=== PATIENT | male | born 1980 | race Two or more races ===

== ENCOUNTER 2019-02-20 03:13 | Emergency (ER) | payer MEDICAID ==
[~2019-02-20] VITALS: Ht 172.7 cm; Wt 81.6 kg
[2019-02-20 03:30] VITALS: BP 152/101
--- NOTE | 2019-02-20 03:39 | Emergency Room Report ---
History of Present Illness General Chief Complaint: Abdominal Pain Source: Patient Present Illness HPI This is a 38-year-old male with no past medical history. He presents with complaint of right upper quadrant pain. This been an ongoing problem for 6 months. Is been intermittently. Usually lasted for less than an hour and go away. This was been more persistent. Has nausea and vomiting. Pain is to the right upper quadrant radiating to the back. Pain is 8 out of 10. Did not take anything for it. Has not seen a doctor for this. Denies any other complaint. Allergies: Coded Allergies: No Known Allergies (Unverified , 02/20/19) Patient History Past Medical History: see triage record, old chart reviewed Past Surgical History: none Pertinent Family History: none Social History: Denies: smoking Immunizations: other Reviewed Nursing Documentation: PMH: Agreed; PSxH: Agreed Nursing Documentation-PMH Hx Seizures: Yes Review of Systems Eye: Denies: eye pain, blurred vision ENT: Denies: ear pain, nose congestion, throat swelling Respiratory: Denies: cough, shortness of breath Cardiovascular: Denies: chest pain, palpitations Gastrointestinal: Reports: abdominal pain; Denies: diarrhea, nausea, vomiting Musculoskeletal: Denies: back pain, joint pain Skin: Denies: rash Neurological: Denies: headache, numbness Endocrine: Denies: increased thirst, increased urine Hematologic/Lymphatic: Denies: easy bruising All Other Systems: negative except mentioned in HPI Physical Exam Vital Signs Date Time Temp Pulse Resp B/P (MAP) Pulse Ox O2 Delivery O2 Flow Rate FiO2 02/20/19 03:22 97.2 70 16 152/101 (118) 97 Room Air Vitals with high blood pressure Sp02 EP Interpretation: reviewed, normal General Appearance: well appearing, no apparent distress, alert Head: normocephalic, atraumatic Eyes: bilateral eye PERRL, bilateral eye EOMI ENT: hearing grossly normal, normal pharynx Neck: full range of motion, supple, no meningismus Respiratory: chest non-tender, lungs clear, normal breath sounds Cardiovascular #1: regular rate, rhythm, no murmur Gastrointestinal: normal bowel sounds, no mass, no organomegaly, no bruit, non- distended, tenderness - Mild right upper quadrant Musculoskeletal: back normal, gait/station normal, normal range of motion Psychiatric: mood/affect normal Medical Decision Making Diagnostic Impression: Primary Impression: Cholelithiasis Qualified Codes: K80.20 - Calculus of gallbladder without cholecystitis without obstruction Additional Impression: Biliary colic ER Course Patient presents with right upper quadrant pain. Labs unremarkable. Bedside ultrasound showed gallstones without any evidence of cholecystitis or biliary obstruction. Pain is well controlled. Will discharge home. Last Vital Signs Date Time Temp Pulse Resp B/P (MAP) Pulse Ox O2 Delivery O2 Flow Rate FiO2 02/20/19 03:30 97.2 70 16 152/101 97 Room Air Status: improved Disposition: HOME, SELF-CARE Condition: Stable Scripts Ibuprofen* (MOTRIN*) 600 Mg Tablet 600 MG ORAL THREE TIMES A DAY, #30 TAB 0 Refills Prov: Parag Chiang MD 02/20/19 Hydrocodone/Acetaminophen 5-325* (HYDROCODONE/ACETAMINOPHEN 5-325*) 1 Each Tablet 1 TAB ORAL Q6H PRN for For Pain, #10 TAB 0 Refills Prov: Parag Chiang MD 02/20/19 Additional Instructions: Follow-up with your doctor in 7 days. You may need a referral to see a surgeon. Return if worse. Parag Chiang MD Feb 20, 2019 03:39
[2019-02-20] MEDS ORDERED: IBUPROFEN600 MG ORAL (03:40)
[2019-02-20] MEDS ORDERED: HYDROCODON-ACE1 EA15 ORAL (03:40)
[2019-02-20] MEDS ORDERED: Morphine Sulfate 4mg/ml Inj (IV USE ONLY) IVP ONE (03:45)
[2019-02-20] MEDS ORDERED: Ketorolac 30mg Inj IV ONE (03:45)
[2019-02-20 03:52] LABS: BASOPHILS % (AUTO) 0.8 % (0.0-2.0); EOSINOPHILS % (AUTO) 0.4 % (0.0-3.0); HEMATOCRIT 48.5 % (42.0-52.0); HEMOGLOBIN 17.2 G/DL (14.2-18.0); LYMPHOCYTES % (AUTO) 16.2 % (20.0-45.0); MEAN CORPUSCULAR VOLUME 86 FL (80-99); MONOCYTES % (AUTO) 5.9 % (1.0-10.0); NEUTROPHILS % (AUTO) 76.8 % (45.0-75.0); PLATELET COUNT 270 K/UL (150-450); RED BLOOD COUNT 5.61 M/UL (4.70-6.10); RED CELL DISTRIBUTION WIDTH 10.5 % (11.6-14.8); WHITE BLOOD COUNT 14.7 K/UL (4.8-10.8)
[2019-02-20 03:53] LABS: APPEARANCE,URINE CLEAR; BILIRUBIN, URINE NEGATIVE (NEGATIVE); COLOR,URINE PALE YELLOW; GLUCOSE, URINE (UA) NEGATIVE (NEGATIVE); KETONES,URINE NEGATIVE (NEGATIVE); LEUKOCYTE ESTERASE ,URINE 1+ (NEGATIVE); NITRITE,URINE NEGATIVE (NEGATIVE); PH,URINE 6.5 (4.5-8.0); PROTEIN,URINE NEGATIVE (NEGATIVE); UROBILINOGEN,URINE NORMAL MG/DL (0.0-1.0)
[2019-02-20 04:03] LABS: ANION GAP 5 mmol/L (5-15); BLOOD UREA NITROGEN 13 mg/dL (7-18); CALCIUM 8.7 MG/DL (8.5-10.1); CARBON DIOXIDE 34 MMOL/L (21-32); CHLORIDE 101 MMOL/L (98-107); SODIUM 139 MMOL/L (136-145)
[2019-02-20 04:08] LABS: ALANINE AMINOTRANSFERASE 79 U/L (12-78); ALBUMIN 4.5 G/DL (3.4-5.0); ALBUMIN/GLOBULIN RATIO 1.2 (1.0-2.7); ALKALINE PHOSPHATASE 66 U/L (46-116); ASPARTATE AMINO TRANSFERASE 31 U/L (15-37); BILIRUBIN,TOTAL 0.4 MG/DL (0.2-1.0)
[2019-02-20 04:29] VITALS: BP 135/77
[2019-02-20 04:30] VITALS: BP 135/77
== END 2019-02-20 04:30 | disposition home or self-care (01) ==
LOC: EMR 03:42
DX: K80.70 Calculus of gallbladder and bile duct without cholecystitis without obstruction (principal); G40.909 Epilepsy, unspecified, not intractable, without status epilepticus
CPT/HCPCS: 36415; 80053; 81003; 83690; 85025; 96361; 96374; 96375; J1885; J2270; J2405; Z7502; 99284

== ENCOUNTER 2019-06-20 22:21 | Emergency (ER) | payer MEDICAID ==
[~2019-06-20] VITALS: Ht 175.3 cm; Wt 81.6 kg
[~2019-06-20 22:21] MED LIST: HYDROCODON-ACE1 EA15 ORAL; IBUPROFEN600 MG ORAL
[2019-06-20 22:35] VITALS: BP 151/97
--- NOTE | 2019-06-20 22:42 | Emergency Room Report ---
History of Present Illness General Chief Complaint: Abdominal Pain Source: Patient Present Illness HPI Patient presents with complaints of right upper quadrant abdominal pain Ongoing for the past 4 hours Reports that he took an aspirin for the pain and as the discomfort persisted he presents to the ER he did have a vomiting episode as well Denies any diarrhea denies any lower abdominal pain denies any fevers or chills denies any chest pain or shortness of breath COVID-19 risk:Contact w/high r: No COVID-19 risk:Travel to affect: No Has patient experienced lopez: No Allergies: Coded Allergies: No Known Allergies (Unverified , 02/20/19) Patient History Past Medical History: see triage record Reviewed Nursing Documentation: PMH: Agreed; PSxH: Agreed Nursing Documentation-PMH Past Medical History: No History, Except For Hx Gastrointestinal Problems: Yes Hx Seizures: Yes Review of Systems All Other Systems: negative except mentioned in HPI Physical Exam Vital Signs Date Time Temp Pulse Resp B/P (MAP) Pulse Ox O2 Delivery O2 Flow Rate FiO2 06/20/19 22:28 97.9 67 16 160/92 (114) 98 Room Air Sp02 EP Interpretation: reviewed, normal General Appearance: well appearing, no apparent distress Head: normocephalic, atraumatic Eyes: bilateral eye PERRL, bilateral eye EOMI ENT: hearing grossly normal, normal pharynx, TMs + canals normal, uvula midline Neck: full range of motion, supple, no meningismus, no bony tend Respiratory: lungs clear, normal breath sounds, no rhonchi, no respiratory distress, no retraction, no accessory muscle use Cardiovascular #1: normal peripheral pulses, regular rate, rhythm, no edema, no gallop, no JVD, no murmur Gastrointestinal: normal bowel sounds, non tender - However subjectively points to the right upper quadrant, soft, no mass, no organomegaly, non- distended, no guarding, no hernia, no pulsatile mass, no rebound Genitourinary: no CVA tenderness Musculoskeletal: normal inspection Neurologic: motor strength/tone normal, snap shearer III-XII nml as tested, oriented x3 , sensory intact, responsive Psychiatric: mood/affect normal Skin: no rash Lymphatic: normal inspection, no adenopathy Medical Decision Making Diagnostic Impression: Primary Impression: Biliary colic ER Course With the history exam and presentation, multiple differentials considered, including but not limited to appendicitis, gastritis, cholecystitis, diverticulitis Patient's white blood cell count was mildly elevated Chemistry including liver function tests otherwise normal Patient did somewhat better however reported continued discomfort therefore CT imaging was done It does show evidence of Stones in the gallbladder otherwise no thickening of the gallbladder no other intra-abdominal abnormalities Patient remains calm and stable Clinically has benign abdominal exam and requires appropriate outpatient follow- up Labs Test 06/20/19 22:42 White Blood Count 15.5 K/UL (4.8-10.8) Red Blood Count 5.10 M/UL (4.70-6.10) Hemoglobin 16.0 G/DL (14.2-18.0) Hematocrit 44.5 % (42.0-52.0) Mean Corpuscular Volume 87 FL (80-99) Mean Corpuscular Hemoglobin 31.4 PG (27.0-31.0) Mean Corpuscular Hemoglobin Concent 35.9 G/DL (32.0-36.0) Red Cell Distribution Width 10.8 % (11.6-14.8) Platelet Count 281 K/UL (150-450) Mean Platelet Volume 8.6 FL (6.5-10.1) Neutrophils (%) (Auto) 70.3 % (45.0-75.0) Lymphocytes (%) (Auto) 22.3 % (20.0-45.0) Monocytes (%) (Auto) 6.1 % (1.0-10.0) Eosinophils (%) (Auto) 0.7 % (0.0-3.0) Basophils (%) (Auto) 0.7 % (0.0-2.0) Sodium Level 145 MMOL/L (136-145) Potassium Level 3.3 MMOL/L (3.5-5.1) Chloride Level 106 MMOL/L (98-107) Carbon Dioxide Level 28 MMOL/L (21-32) Anion Gap 12 mmol/L (5-15) Blood Urea Nitrogen 10 mg/dL (7-18) Creatinine 1.0 MG/DL (0.55-1.30) Estimat Glomerular Filtration Rate > 60 mL/min (>60) Glucose Level 136 MG/DL (74-106) Calcium Level 9.3 MG/DL (8.5-10.1) Total Bilirubin 0.3 MG/DL (0.2-1.0) Aspartate Amino Transf (AST/SGOT) 26 U/L (15-37) Alanine Aminotransferase (ALT/SGPT) 41 U/L (12-78) Alkaline Phosphatase 69 U/L (46-116) Total Protein 7.8 G/DL (6.4-8.2) Albumin 4.5 G/DL (3.4-5.0) Globulin 3.3 g/dL Albumin/Globulin Ratio 1.4 (1.0-2.7) Lipase 212 U/L (73-393) CT/MRI/US Diagnostic Results CT/MRI/US Diagnostic Results : Impression CT abdomen pelvisCT ABDOMEN + PELVIS Without Contrast: No prior exam for comparison. Clear lung bases. Normal heart. Normal liver. Multiple small stones along the dependent portion of the gallbladder at the fundus, otherwise unremarkable gallbladder and biliary system. Normal spleen, pancreas and bilateral adrenal glands. Normal stomach with no hiatal hernia. 5.7 mm stone in the middle pole of the right kidney. 2 stones within the upper pole of the left kidney each measuring 4.5 and 3.7 mm. Otherwise bilateral kidneys normal with no hydronephrosis. Normal retroperitoneum. Mild atherosclerotic disease of the distal abdominal aorta. Normal small bowel . Mild diverticulosis with no signs of diverticulitis. Normal appendix. No bowel obstruction. Slightly distended urinary bladder otherwise unremarkable. Normal prostate gland. Mild degenerative disease of the spine. Last Vital Signs Date Time Temp Pulse Resp B/P (MAP) Pulse Ox O2 Delivery O2 Flow Rate FiO2 06/20/19 22:28 97.9 67 16 160/92 (114) 98 Room Air Status: improved Disposition: HOME, SELF-CARE Condition: Improved Scripts Hydrocodone Bit/Acetaminophen 5-325* (NORCO 5-325 TABLET*) 1 Each Tablet 1 TAB ORAL Q8HR PRN for FOR PAIN, #10 TAB 0 Refills Prov: Matt Levi DO 06/21/19 Ondansetron* (ZOFRAN*) 4 Mg Tablet 4 MG ORAL Q12HR PRN for Nausea & Vomiting, #12 TAB Prov: Matt Levi DO 06/21/19 Additional Instructions: Patient is provided with the discharge instructions notified to follow up with primary doctor in the next 2-3 days otherwise return to the er with any worsening symptoms. Please note that this report is being documented using DRAGON technology. This can lead to erroneous entry secondary to incorrect interpretation by the dictating instrument. Matt Levi DO Jun 20, 2019 22:42
[2019-06-20] MEDS ORDERED: HYDROcodone/Acetamin 5/325 tab ORAL ONE (22:45)
[2019-06-20 23:08] LABS: BASOPHILS % (AUTO) 0.7 % (0.0-2.0); EOSINOPHILS % (AUTO) 0.7 % (0.0-3.0); HEMATOCRIT 44.5 % (42.0-52.0); LYMPHOCYTES % (AUTO) 22.3 % (20.0-45.0); MEAN CORPUSCULAR VOLUME 87 FL (80-99); MONOCYTES % (AUTO) 6.1 % (1.0-10.0); NEUTROPHILS % (AUTO) 70.3 % (45.0-75.0); PLATELET COUNT 281 K/UL (150-450); RED CELL DISTRIBUTION WIDTH 10.8 % (11.6-14.8); WHITE BLOOD COUNT 15.5 K/UL (4.8-10.8)
[2019-06-20 23:16] LABS: ANION GAP 12 mmol/L (5-15); BLOOD UREA NITROGEN 10 mg/dL (7-18); CALCIUM 9.3 MG/DL (8.5-10.1); CARBON DIOXIDE 28 MMOL/L (21-32); CHLORIDE 106 MMOL/L (98-107); POTASSIUM 3.3 MMOL/L (3.5-5.1); SODIUM 145 MMOL/L (136-145)
[2019-06-20 23:20] LABS: ALANINE AMINOTRANSFERASE 41 U/L (12-78); ALBUMIN 4.5 G/DL (3.4-5.0); ALBUMIN/GLOBULIN RATIO 1.4 (1.0-2.7); ALKALINE PHOSPHATASE 69 U/L (46-116); ASPARTATE AMINO TRANSFERASE 26 U/L (15-37); BILIRUBIN,TOTAL 0.3 MG/DL (0.2-1.0)
[2019-06-20] MEDS ORDERED: Dicyclomine HCl 10mg/5ml oral soln ORAL ONE (23:30)
[2019-06-20] MEDS ORDERED: Mylanta II UD 30ml ORAL ONE (23:30)
--- NOTE | 2019-06-21 00:09 | Diagnostic Imaging Report ---
INDICATION: Abdominal pain TECHNIQUE: Continuous helical transaxial imaging of the abdomen and pelvis was obtained from the lung bases to the pubic symphysis. No intravenous contrast was administered. Coronal 2-D reformats were also obtained. Automatic Exposure Control was utilized. Total Dose length Product (DLP): 455.[address] Dose Index Volume (CTDIvol): 822 mGy Comparison: none FINDINGS: Lungs: The visualized lung bases are clear. Liver: Unremarkable Gallbladder/biliary system: Gallstones are suspected. There is no biliary ductal dilatation.. Spleen: Unremarkable Pancreas: Unremarkable Kidneys/Bladder: Nonobstructive stones are demonstrated within both kidneys. There is no hydronephrosis. The stones measure up to 5 mm in size. Urinary bladder is unremarkable.. Adrenal glands: Unremarkable Bowel: Unremarkable. Aorta/IVC: Mild calcium noted within the wall of aorta and iliac arteries. Peritoneum: There is no free fluid. Bones: Unremarkable IMPRESSION: Cholelithiasis. Nonobstructive nephrolithiasis. Mild atherosclerotic disease. [facility] has communicated the preliminary results to the Emergency Department. Their findings are largely concordant with this report. Note: Evaluation of solid organs is limited on non contrast imaging. The CT scanner at [facility] is accredited by the [employer] and the scans are performed using dose optimization techniques as appropriate to a performed exam including Automatic Exposure control.
[2019-06-21] MEDS ORDERED: NORCO 5-325 TA1 EAC1 ORAL (00:21)
[2019-06-21] MEDS ORDERED: ZOFRAN4 M3 ORAL (00:21)
[2019-06-21 00:28] VITALS: BP 149/87
== END 2019-06-21 00:28 | disposition home or self-care (01) ==
LOC: EMR 22:50
DX: K80.50 Calculus of bile duct without cholangitis or cholecystitis without obstruction (principal); G40.909 Epilepsy, unspecified, not intractable, without status epilepticus
CPT/HCPCS: 36415; 74176; 80053; 83690; 85025; Z7502; 99284